=== PATIENT | female | born 1955 | race African-American/Black ===

== ENCOUNTER 2025-08-10 17:52 | Emergency (ER) | payer SELFPAY ==
--- NOTE | ~2025-08-10 | XR_ITS ---
EXAMINATION: XR wrist LT min 3V DATE: 08/10/2025 19:11 INDICATION: Trauma due to fall. TECHNIQUE: 3 views of the left wrist were obtained. COMPARISON: None. FINDINGS: No acute fracture at the left wrist. Moderate degenerative arthritis of radiocarpal joint. Severe degenerative changes of first carpometacarpal joint. Suboptimal visualization of distal scaphoid due to the degenerative change. IMPRESSION: 1. No acute fracture. 2. Severe degenerative changes of first carpometacarpal joint. Moderate degenerative changes of radiocarpal joint. 3. If symptoms are localized and persistent repeat x-ray is suggested after a few days. Suboptimal visualization of scaphoid due to the degenerative changes of the radiocarpal joint. Reviewed, dictated and finalized at location T. CAL RECORDS ADMINISTRATOR IMPRESSION: 1. No acute fracture. 2. Severe degenerative changes of first carpometacarpal joint. Moderate degener ative changes of radiocarpal joint. 3. If symptoms are localized and persistent repeat x-ray is suggested after a f ew days. Suboptimal visualization of scaphoid due to the degenerative changes o f the radiocarpal joint.
--- NOTE | ~2025-08-10 | CT_ITS ---
EXAMINATION: CT brain wo con DATE: 08/10/2025 19:21 INDICATION: Trauma due to fall. TECHNIQUE: Computed tomography (CT) of the head was performed without intravenous contrast. The mA was adjusted according to patient size. Iterative reconstruction technique was employed. The dose-length product was 605.33 mGy-cm. COMPARISON: None FINDINGS: No acute intracranial bleed or extra-axial collections. No evidence of ventriculomegaly or midline shift. No acute cranial fracture. IMPRESSION: 1. No acute findings on CT head without contrast. Reviewed, dictated and finalized at location T. ING THERAPIST
--- NOTE | ~2025-08-10 | CT_ITS ---
EXAMINATION:CT C-spine and facial bones without contrast: DATE: 08/10/2025 INDICATION: TECHNIQUE: Computed tomography (CT) of the C-spine and facial bones was performed without intravenous contrast. The dose-length product (DLP) was 795 mGy-cm. COMPARISON: None. FINDINGS: The orbital floors are intact. No acute fractures of the nasal bones and the zygomatic arches. No acute fractures of the mandible. No acute fractures of the cervical vertebrae. Severe degenerative disc changes at C4-5, C5-6 levels. No compromise of the spinal canal due to trauma. Compromise of neural foramen due to osteophyte complex and degenerative changes at C4-5 and C5-6 levels. IMPRESSION: 1. No acute facial fractures. 2. No acute fractures of the C-spine. Significant degenerative disc changes at C4-5 and C5-6 levels as mentioned above. Reviewed, dictated and finalized at location T. ER PRESS OPERATOR
[2025-08-10 18:52] VITALS: BP 121/60; PULSE 77; RESP 20; TEMP 36.4; O2SAT 100
[2025-08-10 20:21] VITALS: BP 157/70; PULSE 72; RESP 21; TEMP 36.6; O2SAT 100
--- OUTSIDE RECORDS SUMMARY | 2025-08-10 20:46 | XMS_ITS | Clinical Summary ---
Author Organization [facility] Address [address] [place] [address] Care Team Providers Care Analytical Data Scientist Name Role Phone Molina Terrazas MD Primary Care Provider Gini Martinez MD Unavailable [phone] Allergies Active Allergy Reactions Criticality Noted Date Comments Hydralazine Headache Low 07/06/2022 Medications acetaminophen (TYLENOL) 500 mg tablet Take 1 tablet (500 mg total) by mouth every 6 (six) hours as needed for pain Active melatonin 10 mg tablet Take 1 tablet (10 mg total) by mouth nightly as needed Active omega-3 fatty acids-fish oil 300-1,000 mg capsule Take 2 capsules (2 g total) by mouth daily Active triamcinolone (KENALOG) 0.1 % cream Apply to affected area (right foot) 1-2 times daily as needed. Avoid face and groin. 30 g 5 5 10/30/19 26 Active aspirin 81 mg chewable tablet Take 1 tablet (81 mg total) by mouth daily 5 01/18/20 26 Active furosemide (LASIX) 40 mg tablet Take 1 tablet (40 mg total) by mouth daily 90 tablet 3 5 01/24/20 26 Active spironolactone (ALDACTONE) 25 mg tablet Take 1 tablet (25 mg total) by mouth daily 90 tablet 3 5 01/24/20 26 Active potassium chloride ER (KLOR-CON) 20 mEq CR tablet Take 1 tablet (20 mEq total) by mouth daily 90 tablet 3 5 01/24/20 Active omeprazole (PriLOSEC) 20 mg capsule Take 1 capsule (20 mg total) by mouth daily 90 capsule 1 5 03/03/20 Active losartan (COZAAR) 25 mg tablet Take 1 tablet (25 mg total) by mouth daily 30 tablet 11 5 05/19/20 Active rosuvastatin (CRESTOR) 10 mg tablet Take 1 tablet (10 mg total) by mouth nightly 90 tablet 3 5 05/19/20 Active ramelteon (ROZEREM) 8 mg tabletIndication s:Sleep-Onset Insomnia Take 1 tablet (8 mg total) by mouth nightly 30 tablet 11 5 05/19/20 Active metoprolol XL (TOPROL-XL) 25 mg extended release tablet TAKE 1 TABLET(25 MG) BY MOUTH DAILY 90 tablet Active dapagliflozin propanediol (FARXIGA) 10 mg tablet Take 1 tablet (10 mg total) by mouth daily 30 [address] (CYMBALTA) 30 mg capsuleIndicatio ns:Neuropathic Pain,major depressive disorder Take 1 capsule (30 mg total) by mouth 2 (two) times a day 180 capsule 3 5 Active Active Problems Problem Noted Date Diagnosed Date NICM (nonischemic cardiomyopathy) 05/19/2025 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 Benign paroxysmal positional vertigo 05/19/2025 Esophageal dysphagia 03/18/2025 Overview (05/22/2025): 05/28: EGD shows inflammation - increased PPI to BID. Consider swallow study? Retching 03/18/2025 Unintentional weight loss 03/18/2025 Weight loss, unintentional 03/03/2025 Assessment & Plan (03/03/2025 12:31 PM CDT): Down 20 pounds in the last month. Consider additional imaging if omeprazole does not help with nausea/retching. Transition of care 01/23/2025 Overview (01/23/2025): Admission Date: 01/12/2025 Discharge Date: 01/16/2025 [address]mission Location: [facility] Problems/Diagnoses: Principal Problem: Sepsis without acute organ dysfunction, due to unspecified organism ([facility]) Active Problems: Class 2 severe obesity due to excess calories with serious comorbidity and body mass index (BMI) of 38.0 to 38.9 in adult ([facility]) Essential hypertension Primary osteoarthritis of left hip Moderate episode of recurrent major depressive disorder ([facility]) Coronary artery disease involving modoc coronary artery of modoc heart without angina pectoris Positive blood culture NSVT (nonsustained ventricular tachycardia) ([facility]) Hypokalemia Resolved Problems: No resolved hospital problems. Debility, age related debility, reduced mobility, and limitation of activities due to disability. Per PT or OT. DETAILS OF HOSPITAL STAY Presenting Problem/History of Present Illness: Patient has had a recent history of LE swelling, chest pains. Work up has shown EF 45%. Leg swelling improved on increased doses of furosemide. Compounded by LE venous stasis due to obesity and immobility due to very severe DJD hip. She also has had lower abdominal pain and noted hematuria. She was admitted for evaluation. Last night she was noted to have 10 beat run of NSVT. She also has GPC in 1/2 bottles from cultures taken in ER. Urine culture is pending. Hospital Course: Patient was given IV antibiotics with prompt improvement in her symptoms. Blood and urine cultures grew E. Coli. She was treated with 5 days of IV ceftriaxone and sent home on 2 days of oral cipro. She was seen in consultation by cardiology due to chest pain and NSVT. Dr. Carty recommended outpatient cardiac catheterization. Her diuretic regimen was decreased due to improvement in her legs. Hypokalemia was repleted with oral potassium supplements. Due to her severe DJD hip, PT worked with her. She will have C on DC. Active Issues Requiring Follow-up: FU with me in one week. Test Results Pending at Discharge: Pending Labs Order Current Status Magnesium In process Pro B-type natriuretic peptide In process Troponin T high-sensitivity series (baseline, 2hr, 4hr, 6hr) In process Blood culture Blood Preliminary result Blood culture Blood Preliminary result Operative Procedures Performed: Other Procedures: As above Pertinent Test Results: As above Discharge Details Physical Exam at Discharge: Discharge Condition: poor Pulse: 77 Resp: 18 BP: 143/80 Temp: 36.8 C (98.3 F) Weight: 101.7 kg (224 lb 3.3 oz) Pertinent Exam Findings at Discharge: minimal edema LE's Discharge Disposition: Patient will be discharged to:home with home health Code Status at Discharge: full Discharge Instructions: As above Other Instructions Walker Height: 160 cm (5' 3) Weight: 101.7 kg (224 lb 3.3 oz) Type: Adult (163-188 cm tall) Bariatric (>300#): No Wheeled walker: Yes Wheel type: Front wheeled Leg extenders: No Walker basket: No Patient qualifies: Patient s mobility limitation significantly impairs the ability to participate in one or more MRADLs in the home. The use of a walker will significantly improve the patient s ability to participate in MRADLs. Patient ability: Patient is willing and able to use the walker safely in the home because the limitation cannot be resolved using another piece of equipment. Patient s home provides adequate access for use and maneuvering. DME services provided by: [employer] Ambulatory referral to Home Health Service Line: Home Health Primary disciplines requested: Long-Term Physical Therapy Secondary disciplines requested: Occupational Therapy Home Health Services: Disease and Medication Management Therapy to Eval/Tx Therapy instructions: Evaluation/treatment Requested Start of Care Date: Next Week Physician to follow patient's care (the person listed here will be responsible for signing ongoing orders): PCP I attest that I or another qualified licensed provider saw the patient 90 days prior to or 30 days post admission and this face to face encounter meets the necessary Home Health requirements. The face to face encounter occurred on (date): 01/16/2025 The encounter with the patient was in whole, or in part, for the following medical condition, which is the primary reason for home health care. (List medical condition): urosepsis, severe DJD hip, CAD I certify that, based on my findings, the following services are medically necessary skilled home health services: Therapy to Eval/Tx Clinical findings that support the need for home care: Medical condition requiring skilled assessment/education Lack of knowledge regarding medications, requires education and assessment I certify that my clinical findings support patient's homebound status. Homebound criteria met because: Poor endurance Shortness of breath with minimal exertion Abnormal gait/unsteady balance resulting in fall risk Discharge Medications: Current Medications TAKE these medications acetaminophen 500 mg tablet Take 1 tablet (500 mg total) by mouth every 6 (six) hours as needed for pain Commonly known as: TYLENOL aspirin 81 mg chewable tablet Take 1 tablet (81 mg total) by mouth daily Start taking on: January 17, 2025 budesonide 32 mcg/actuation nasal spray Administer 1-2 sprays into each nostril daily Commonly known as: RHINOCORT AQUA ciprofloxacin 500 mg tablet Take 1 tablet (500 mg total) by mouth 2 (two) times a day for 4 doses For: Urinary Tract/Genitourinary Infection Commonly known as: CIPRO DULoxetine DR 30 mg capsule Take 1 capsule (30 mg total) by mouth 2 (two) times a day For: neuropathic pain, major depressive disorder Commonly known as: CYMBALTA furosemide 40 mg tablet Take 1 tablet (40 mg total) by mouth daily Commonly known as: LASIX melatonin 10 mg tablet Take 1 tablet (10 mg total) by mouth nightly as needed metoprolol XL 50 mg extended release tablet Take 1 tablet (50 mg total) by mouth daily Commonly known as: TOPROL-XL Start taking on: January 17, 2025 omega-3 fatty acids-fish oil 300-1,000 mg capsule Take 2 capsules (2 g total) by mouth daily potassium chloride ER 20 mEq CR tablet Take 1 tablet (20 mEq total) by mouth daily Commonly known as: KLOR-CON rosuvastatin 20 mg tablet Take 1 tablet (20 mg total) by mouth nightly Commonly known as: CRESTOR spironolactone 25 mg tablet Take 1 tablet (25 mg total) by mouth daily Commonly known as: ALDACTONE Start taking on: January 17, 2025 triamcinolone 0.1 % cream Apply to affected area (right foot) 1-2 times daily as needed. Avoid face and groin. Commonly known as: KENALOG valsartan 160 mg tablet Take 1 tablet (160 mg total) by mouth daily Commonly known as: ROSETTA Outpatient Follow-Up: Future Appointments Date Time Provider Department Center 01/23/2025 11:00 AM Elaine Burton NP [facility] 227 PC 02/02/2025 1:15 PM Johny Carty MD PhD [facility] 200 Specialty 06/18/2025 11:00 AM Elaine Burton NP [facility] 227 Contact Information for Follow-ups Molina Terrazas MD Specialty: Internal Medicine Relationship: PCP - General [address] [facility], [place] [address] [facility] [address] Next Steps: Follow up in 1 week(s) [facility] Specialty: Home [facility] and H[facility]ice [address] [facility] [address] Next Steps: Follow up Questions: Service Line: Home Health Primary disciplines requested: Long-Term Physical Therapy Secondary disciplines requested: Occupational Therapy Home Health Services: Disease and Medication Management Therapy to Eval/Tx Therapy instructions: Evaluation/treatment Requested Start of Care Date: Next Week Physician to follow patient's care (the person listed here will be responsible for signing ongoing orders): PCP I attest that I or another qualified licensed provider saw the patient 90 days prior to or 30 days post admission and this face to face encounter meets the necessary Home Health requirements. The face to face encounter occurred on (date): 01/16/2025 The encounter with the patient was in whole, or in part, for the following medical condition, which is the primary reason for home health care. (List medical condition): urosepsis, severe DJD hip, CAD I certify that, based on my findings, the following services are medically necessary skilled home health services: Therapy to Eval/Tx Clinical findings that support the need for home care: Medical condition requiring skilled assessment/education Lack of knowledge regarding medications, requires education and assessment I certify that my clinical findings support patient's homebound status. Homebound criteria met because: Poor endurance Shortness of breath with minimal exertion Abnormal gait/unsteady balance resulting in fall risk Referral Status: Do Not Schedule Patient qualifies for walker: Patient s mobility limitation significantly impairs the ability to participate in one or more MRADLs in the home. The use of a walker will significantly improve the patient s ability to participate in MRADLs. Patient qualifies for walker: Patient is willing and able to use the walker safely in the home because the limitation cannot be resolved using another piece of equipment. Patient s home provides adequate access for use and maneuvering. Hypokalemia 01/14/2025 Assessment & Plan (01/16/2025 8:23 AM CDT): Due to diuresis. Continue to replete orally as an outpatient. Short of breath on exertion 01/14/2025 Overview (05/22/2025): 03/27: PFT showed improvement after bronchodilator - trying Advair AM/HS 05/28: Binh: recommend starting inhalers Assessment & Plan (03/02/2025 2:15 PM CDT): Unclear cause Significant exertional dyspnea with non-cardiac etiology. Pulmonary origin suspected. PFT report not back yet. - Follow up with process coach Dr. Purcell in April. Positive blood culture 01/13/2025 Assessment & Plan (01/16/2025 8:24 AM CDT): Urinary source. 01-12 bottles with E. Coli 01-13 Repeat cultures NGTD Continue ceftriaxone. D5 Discharge on 2 days of cipro. NSVT (nonsustained ventricular tachycardia) 01/01 Overview (01/13/2025): 01-25 tele: 10 bt NSVT Assessment & Plan (01/14/2025 9:21 AM CDT): Appreciate cardiology consult. Continue with metoprolol. Sepsis without acute organ d ysfunction, due to unspecified organism 01/12/2025 Assessment & Plan (01/14/2025 9:23 AM CDT): Clinically resolved Fever, elevated WBC on admission. Due to urinary source. See above Advance care planning 12/11/2024 Overview (12/11/2024): 12-26 HCPOA: Daughter: 1. Reena Pleitez 2. Kathy Pleitez. Full code if there is a chance of recovery, otherwise DNR/DNI. Assessment & Plan (12/11/2024 11:42 AM CDT): Advance Care Planning Advance Care Planning Conversation Pertinent diagnoses: age The patient and/or family consented to a voluntary Advance Care Planning conversation. Individuals present for the conversation: patient Summary of the conversation: Full code if there is a chance of recovery, otherwise DNR/DNI. Outcome of the conversation and documents completed (select all that apply): CHANGE code status to FULL CODE I spent 16 minutes providing separately identifiable ACP services with the patient and/or surrogate decision maker in a voluntary, in-person conversation discussing the patient's wishes and goals as detailed in the above note. Molina Terrazas MD Vertigo 12/11/2024 Assessment & Plan (12/11/2024 11:35 AM CDT): Trial of Eppley maneuvers at home (look up on www.[employer].com). If not improved can send for vestibular exercises. Hoarseness of voice 12/11/2024 Overview (12/11/2024): 06-24 ENT: nl laryngoscopy. Possible reflux Assessment & Plan (12/11/2024 11:39 AM CDT): She is no longer on PPI. Feels more drainage lately. Trial of a nasal steroid. Coronary artery disease invo lving modoc coronary artery of modoc heart without angina pectoris 11/26/2024 Overview (12/11/2024): 11-25 CTA heart: LAD plaque, no stenosis. Assessment & Plan (06/18/2025 12:21 PM CDT): Follows with Dr. Carty Chronic combined systolic and diastolic heart failure Heart failure on medical therapy. Farxiga prescribed, pending cost assessment. Cardiac clearance needed for hip surgery. - [facility] to assess affordability of Farxiga. Continue other GDMT - Coordinate with Dr. Carty for cardiac clearance for hip surgery. Assessment & Plan (01/15/2025 8:39 AM CDT): LAD plaque seen on CTA done 11-25. Continue aspirin, rosuvastatin, metoprolol. Cardiology recs for CC noted, to schedule in about 14 days as an outpatient. Assessment & Plan (12/11/2024 11:05 AM CDT): Continue with BP control. Consider statin. Assessment & Plan (11/26/2024 11:17 AM CDT): 11/25: Mildly decreased EF on ECHO - more significant on Lexiscan. Fixed defect noted. Referred to cards Diastolic dysfunction 11/26/2024 Overview (11/26/2024): 11/25: ECHO EF 45%. Grade 1 DD with LVH - Cardiology to see her - they recommend starting metoprolol. Assessment & Plan (01/02/2025 1:33 PM CDT): Likely has a degree of CHF on top of venous stasis. Will increase furosemide to 60 mg bid. Reassess in 3 weeks and will repeat labs (BMP) at that time. Discussed keeping sodium less than 2 gm a day. Elevate feet as much as possible. Use compression hose. Assessment & Plan (12/11/2024 11:03 AM CDT): Continue on metoprolol, ARB. Spinal stenosis of lumbosacral region 08/01/2022 Overview (06/20/2024): 07/18/22: Known lumbar DD. Now with pain going down the front of both legs. Will update MRI to see if intervention would be needed For now take gabapentin 100 mg in the AM and Midday. Take 300 mg at night. 07/25: MRI shows severe spinal canal stenosis in lumbar region - referred to Dr. Quintero - at that time she did not want to do surgery. PM injections tried. 06/26: pain is affecting her daily - gabapentin did not help. Feeling defeated - Starting Lyrica and refer to PM again Assessment & Plan (11/06/2024 11:23 AM PAINTER TOUCH UP): 11/25: Trying Cymbalta - refer to pain management Assessment & Plan (06/20/2024 11:50 AM CDT): Medication management has not been successful. Can return to pain management or neurosurgery. Consider Lyrica Assessment & Plan (08/02/2022 11:28 AM PAINTER TOUCH UP): Referred to Dr. Quintero for further consideration. History of gout 07/03/2022 Overview (07/06/2022): 07/03/22: In today for left foot pain. Ongoing last week terrible Sunday. Still very sore. Went to [facility] but they did not have xray or lab 07/25: started colchicine - uric acid lab was high normal. Now off chlorthaladone Assessment & Plan (10/30/2024 3:43 PM PAINTER TOUCH UP): Having pain in both ankles and feet and worried about a gout flare. Explained to the patient it is likely the swelling in her legs and feet causing the pain. Toes are cool - will order PATTI. Assessment & Plan (07/06/2022 1:36 PM CDT): Continue the colchicine for the next week. Assessment & Plan (07/03/2022 3:46 PM CDT): May be gout Try colchicine twice per day Stop chlorthalidone Start hydralazine Return in 1 week Venous insufficiency 07/03/2022 Overview (08/02/2022): 07/25: ECHO: nl lv fxn Assessment & Plan (01/02/2025 1:35 PM CDT): See above Assessment & Plan (12/11/2024 11:50 AM CDT): Worsened due to immobility. Palpable pulses in feet. Continue with compression stockings. Assessment & Plan (11/06/2024 11:24 AM PAINTER TOUCH UP): Improving - will get updated ECHO next week. Continue with increased lasix. Assessment & Plan (10/30/2024 3:08 PM PAINTER TOUCH UP): Increase furosemide to 40 mg twice per day and return in 1 week Assessment & Plan (06/20/2024 12:40 PM CDT): Get back on BP valsartan and continue furosemide Elevate feet when sitting Compression must be used Avoid sodium in the diet Assessment & Plan (04/19/2023 12:14 PM CDT): Mostly venous insufficiency. Her lack of mobility is a major factor. Not willing to do compression stockings. Increased diuretic not likely to help much in this situation. Must check renal function first. Assessment & Plan (08/02/2022 11:49 AM PAINTER TOUCH UP): Check BMP on lasix To use compression stockings daily. Range of motion leg exercises. Assessment & Plan (07/18/2022 11:14 AM PAINTER TOUCH UP): ECHO today Worse - adding on furosemide daily Advise to use compression socks and elevate feet with sitting Avoid sodium in the diet Assessment & Plan (07/06/2022 1:36 PM CDT): ECHO upcoming - for now stay off clorthalidone Assessment & Plan (07/03/2022 3:32 PM CDT): Lab today Headache 06/15/2021 Assessment & Plan (06/15/2021 9:44 AM CDT): Likely related to hypertension. Improved this AM. Follow. Moderate episode of recurrent major depressive d isorder 06/01/2021 Overview (06/01/2021): 9-21 to look into counseling Assessment & Plan (01/14/2025 9:20 AM CDT): To do counseling as an outpatient. Assessment & Plan (12/11/2024 11:05 AM CDT): Continue duloxetine. Assessment & Plan (10/30/2024 3:40 PM PAINTER TOUCH UP): Tried lyrica in the past. Consider cymbalta in the future. Assessment & Plan (06/20/2024 12:38 PM CDT): Starting Lyrica as she is feeling defeated due to pain. Assessment & Plan (06/23/2021 11:36 AM CDT): Look into counseling Assessment & Plan (06/01/2021 3:52 PM CDT): She would like to start with counseling. To call her insurance and find a list of covered providers. Multiple joint pain 01/13/2019 Assessment & Plan (12/11/2024 11:06 AM CDT): Diffuse arthritis. Continue with tylenol and Voltaren gel. Primary osteoarthritis of left hip 01/13/2019 Overview (06/20/2024): 07/18/22: Today reporting bilateral hip pain - pain also goes down the front of both thighs. Known hip arthritis. Severe arthritis in the left hip 06/26: Continues to bother her daily - will try PM in effort to avoid surgery Assessment & Plan (01/16/2025 8:25 AM CDT): Resulting in significant immobility. PT to w/ HH Assessment & Plan (01/02/2025 1:34 PM CDT): Refer to another orthopedist for a second opinion. Assessment & Plan (11/06/2024 11:23 AM PAINTER TOUCH UP): Severe arthritis - continue Tylenol and adding cymbalta Assessment & Plan (06/20/2024 11:50 AM CDT): Discuss with PM Assessment & Plan (04/19/2023 12:17 PM CDT): She has very severe disease. I advised her to go to ortho as XENIA is really the only chance she has for improved quality of life. Chronic narcotics will not help her condition and are not appropriate. Continue with gabapentin. Add back tylenol at 1000 mg three times a day. Trial of diclofenac gel. Assessment & Plan (08/02/2022 11:29 AM PAINTER TOUCH UP): Severe disease. May need XENIA at some point as well. Assessment & Plan (07/18/2022 11:27 AM PAINTER TOUCH UP): Today reporting bilateral hip pain - pain also goes down the front of both thighs. Known hip arthritis. Unclear if the pain is related to her hips or lumbar disc disease -imaging ordered Assessment & Plan (08/19/2021 12:53 PM PAINTER TOUCH UP): Very severe. Pending the work up listed below, consider repeat ortho referral. Assessment & Plan (06/23/2021 11:35 AM CDT): Refer to Dr. Pearce Assessment & Plan (06/15/2021 9:43 AM CDT): Very severe with limited mobility. Ortho is wanting weight loss prior to considering surgery. Her cardiovascular status will need to be optimized first as well. Assessment & Plan (06/01/2021 3:54 PM CDT): The hip looks to be severely arthritic. Will refer to Dr. Michael Guerra for further evaluation. Other chronic pain 01/13/2019 Assessment & Plan (11/06/2024 11:23 AM PAINTER TOUCH UP): Starting cymbalta and refer to PM Assessment & Plan (10/30/2024 3:39 PM PAINTER TOUCH UP): Ongoing issues with arthritis in both upper and lower extremities. Using tylenol. Asking for something else. Will discuss with Dr. Terrazas when he returns Medicare annual wellness visit, subsequent 10/15 Assessment & Plan (12/11/2024 11:02 AM CDT): Please see below for a list of your medical conditions and recommendations. Assessment & Plan (06/23/2021 11:01 AM CDT): Mammogram: due DEXA: due Colon: 12/23 The patient should continue to focus on diet and exercise as a way to maintain and improve health. Will review labs performed today and contact the patient with the results. At this point continue the current medication regimen. Assessment & Plan (10/15/2018 9:59 AM PAINTER TOUCH UP): Reviewed medical history and medications as well as new concerns Dr. Terrazas met with this patient as well Will accept her as a new patient. Next visit due: in 2 weeks Needs multiple screenings Will need to get records from Dr. Ding Insomnia 10/15/2018 Overview (10/29/2018): Does not feel she sleeps at night BT: 9pm - hard to get into bed. RT: 3am Fatigued. Will fall asleep unintentionally in the day. No snoring or pauses in breathing. Melatonin tried and did not help Assessment & Plan (10/15/2018 10:13 AM PAINTER TOUCH UP): Not sleeping at night and falling asleep in the day Pain is an ongoing factor Class 2 severe obesity due t o excess calories with serious comorbidity and body mass index (BMI) of 38.0 to 38.9 in adult 10/15/2018 Assessment & Plan (01/13/2025 9:05 AM CDT): Risk factor for more severe disease. Outpatient efforts at weight loss through diet and exercise. Assessment & Plan (01/02/2025 1:34 PM CDT): Insurance denied ozempic. Continue efforts at calorie restriction. Assessment & Plan (12/11/2024 11:34 AM CDT): She needs to continue efforts at weight loss through regular exercise and calorie restriction, making sure to avoid high fat foods, simple carbohydrates (sugars) and any beverages containing sugar. To work at eating at least 4-5 servings of fruits and vegetables a day. The ideal BMI is 25.0. Discussed doing SGLP1 inhibitors given heart disease and obesity. Discussed administration, possible side effects. Will send a script. She understands it may not be covered. Assessment & Plan (11/06/2024 11:23 AM PAINTER TOUCH UP): Down 6 pounds since the last visit Assessment & Plan (10/30/2024 3:38 PM PAINTER TOUCH UP): Up another 3 pounds. BMI Follow-up includes: nutrition counseling and exercise counseling. Assessment & Plan (06/20/2024 12:38 PM CDT): Weight down 8 pounds since the last visit Assessment & Plan (04/19/2023 12:14 PM CDT): Major risk factor for her medical conditions. Assessment & Plan (08/02/2022 11:29 AM PAINTER TOUCH UP): Risk factor for more severe disease. Assessment & Plan (07/18/2022 11:29 AM PAINTER TOUCH UP): Ongoing Assessment & Plan (07/04/2022 9:06 AM CDT): BMI Follow-up includes: nutrition counseling and exercise counseling. Assessment & Plan (06/23/2021 11:34 AM CDT): BMI Follow-up includes: nutrition counseling and exercise counseling. Assessment & Plan (06/15/2021 9:43 AM CDT): Outpatient efforts at diet and exercise. Assessment & Plan (06/01/2021 3:55 PM CDT): She needs to continue efforts at weight loss through regular exercise and calorie restriction, making sure to avoid high fat foods, simple carbohydrates (sugars) and any beverages containing sugar. To work at eating at least 4-5 servings of fruits and vegetables a day. The ideal BMI is 25.0. Assessment & Plan (10/15/2018 9:34 AM PAINTER TOUCH UP): The BMI is in the obese range thus increasing your risk for cardiovascular, endocrine, GI, and musculoskeletal problems. Strive to cut back on calories and increase exercise to achieve weight loss. Include at least 4-5 fruits and vegetables in the diet daily and exercise for about 30 min nearly every day. Limit fried and high fat foods and include lean sources of protein as well as low fat dairy or other calcium sources. Consider making short and exterminator goal to track your progress. Keep a diet/exercise record or on line resource to track calories in and out. Discuss your efforts with me at the next visit. Look up [employer] - this is a free calorie tracking madelyn. BMI Follow-up includes: nutrition counseling and exercise counseling. Essential hypertension 10/15/2018 Overview (06/20/2024): 05-24 resume lisinopril 20/d, start chlorthalidone - stop lisinopril for cough. Start valsartan 160/d 07/25: had to stop the chlorthalidone due to gout - started hydralazine but it caused a terrible headache. BP ok off chlorthalidone at this time. Will track at home and return in 2 weeks. 07/18/22: BP up and ankle swelling worse. Starting furosemide and return in 2 weeks 06/26: not regularly taking her valsartan. Does take furosemide Assessment & Plan (06/18/2025 12:21 PM CDT): BP in range Essential hypertension Blood pressure well-controlled. No home monitoring currently. - Continue current antihypertensive regimen. (Spironolactone, losartan, metoprolol and furosemide - Encourage home blood pressure monitoring. Assessment & Plan (01/14/2025 9:20 AM CDT): Continue on metoprolol, losartan Assessment & Plan (12/11/2024 11:03 AM CDT): The blood pressure is adequately controlled. Ideally, I want it below 130/80. Will continue with the same medications as prescribed (valsartan, metoprolol). Salt intake needs to be restricted to keep the sodium level at less than 2000 mg a day. Regular exercise is also important and should be at least four days a week. Assessment & Plan (11/06/2024 11:24 AM PAINTER TOUCH UP): BP improving - continue diovan and increased dose of the lasix Assessment & Plan (10/30/2024 3:42 PM PAINTER TOUCH UP): At the last visit she reported not regularly taking her valsartan. Does take her furosemide. We have a hard time getting her to come in for regular visits for healthcare. BP is high today and I suspect CHF flare. We are increasing the furosemide and having her come in next week for f/u. Assessment & Plan (06/20/2024 12:40 PM CDT): Get back on the Diovan and continue the furosemide Return for AWV in 1 month Assessment & Plan (04/19/2023 12:13 PM CDT): She needs to get back to taking valsartan daily. Check BMP to assess renal function. Return in six weeks. Assessment & Plan (07/18/2022 11:13 AM PAINTER TOUCH UP): BP and swelling are worse without the chlorthalidone. Adding on Furosemide at 20 mg daily ECHO today Return in 2 weeks Assessment & Plan (07/06/2022 1:37 PM CDT): Continue valsartan and stay off the chlorthalidone Avoid excess sodium Return on 07/18/22 for next BP check If the BP at home stays at or under 140/90 - no changes are needed Assessment & Plan (07/03/2022 3:46 PM CDT): BP elevated today Start hydralazine and stop the chlorthalidone Assessment & Plan (06/23/2021 11:35 AM CDT): BP in range today Continue current medication Return in 1 mo Assessment & Plan (06/15/2021 9:42 AM CDT): Cut back chlorthalidone to 12.5/d given renal dysfunction. May need to increase ACEi or start CCB in addition. Assessment & Plan (06/01/2021 3:55 PM CDT): I am quite concerned about her very elevated blood pressure. Check ECG today. To resume lisinopril and will add chlorthalidone. Check renal function. Knows to avoid NSAIDs. Follow up in two weeks. Salt restriction encouraged. Assessment & Plan (10/29/2018 1:34 PM PAINTER TOUCH UP): BP is much improved from the last visit Will get labs today Return in 6 mos Assessment & Plan (10/15/2018 10:14 AM PAINTER TOUCH UP): BP is too high today Will start medication : lisinopril 10mg daily and return in 2 weeks Osteoarthritis of knee 03/09/2014 Overview (07/18/2022): Osteoarthritis of knee Walks with cane 07/25: known severe arthritis bilateral knees - used to get steroid injections. Questions if she can get these again. Assessment & Plan (07/18/2022 11:28 AM PAINTER TOUCH UP): I want to see if this radicular pain improves with gabapentin. Can consider steroid injection into the knees in the future. May need a referral to pain management due to multiple pain complaints Assessment & Plan (06/23/2021 11:33 AM CDT): Uses cane - tylenol is safer for chronic pain Assessment & Plan (10/15/2018 10:13 AM PAINTER TOUCH UP): Ok to use tylenol up to 1000mg three times per day Resolved Problems Problem Noted Date Diagnosed Date Resolved Date Decreased pulses in feet 11/06/202406/2025 Overview (11/17/2024): 11/25: PATTI: NL Assessment & Plan (11/06/2024 11:25 AM PAINTER TOUCH UP): PATTI upcoming next week Pain of right scapula 08/19/20212021 Assessment & Plan (08/19/2021 12:55 PM PAINTER TOUCH UP): The point tenderness in her scapula and left ribs is concerning for a space occupying lesion. Will send for an xray and consider doing a bone scan. Check labs for evidence of systemic disease including MM. Laryngopharyngeal reflux 08/19/202106/2025 Overview (08/02/2022): - Arvind: PPI Assessment & Plan (08/02/2022 11:31 AM PAINTER TOUCH UP): Continue nexium Assessment & Plan (08/19/2021 12:55 PM PAINTER TOUCH UP): Refer to ENT. Rib pain on left side 08/19/20212021 Assessment & Plan (08/19/2021 12:56 PM PAINTER TOUCH UP): See above. Encounter for support and co ordination of transition of care 06/23/2021 07/18/2022 Overview (06/23/2021): Admission Date: 06/14/2021 Discharge Date: 06/15/2021 AVELINO: 06/21/21 Primary Discharge Diagnosis Exertional chest pain Secondary Discharge Diagnosis Principal Problem: Exertional chest pain Active Problems: Morbid obesity with BMI of 40.0-44.9, adult (HCC) Essential hypertension Primary osteoarthritis of left hip Headache Acute renal failure superimposed on stage 3 chronic kidney disease (HCC) History of Present Illness: Patient presented to my office on 06-01-21 after not having been seen for many years. She has a long history of HTN but had not been on medicine for several years. She was started on chlorthalidone and lisinopril. At that time she was not having exertional chest pain. She called complaining of dizziness on 06-10-21. At that time her SBP was in 150's. She was instructed to continue the medications and keep her follow up scheduled on 06-17-21. Since that time she had a few episodes of chest tightness with exertion and came to ER last night. She also had a BILLINGS which has resolved this AM. Troponin's negative. She was admitted for stress testing and further evaluation. Hospital Course Stress testing showed no ischemia. She was sent home on chlorthalidone 12.5 mg a day. She will follow up with me in one week. Discharge Medications: Your medication list CHANGE how you take these medications Instructions Last Dose Given Next Dose Due chlorthalidone 25 mg tablet What changed: how much to take Take 0.5 tablets (12.5 mg total) by mouth daily CONTINUE taking these medications Instructions Last Dose Given Next Dose Due acetaminophen 500 mg tablet Commonly known as: TYLENOL acidophilus-pectin, citrus 100 million cell-10 mg capsule lisinopriL 20 mg tablet Commonly known as: PRINIVIL,ZESTRIL Take 1 tablet (20 mg total) by mouth daily melatonin 10 mg tablet multivitamin capsule omega-3 fatty acids-fish oil 300-1,000 mg capsule Operative Procedures Performed Consults: none Procedures: none Physical Exam at Discharge Discharge Condition: fair Pulse: 82 Resp: 18 BP: 143/60 Temp: 36.6 C (97.9 F) Weight: 106.2 kg (234 lb 3.2 oz) Discharge Disposition Discharge to home or self care Code Status at Discharge: full Active Issues Requiring Follow-up: none Total Discharge Time: 25 min Outpatient Follow-Up No future appointments. Patient to call ([phone]) to schedule follow up with Dr. Terrazas in 1 week. Assessment & Plan (06/23/2021 10:58 AM CDT): Principal Problem: Exertional chest pain: stress test did not show ischemia - BP medication adjusted. Active Problems: Morbid obesity with BMI of 40.0-44.9, adult (HCC): BMI Follow-up includes: nutrition counseling and exercise counseling Essential hypertension: chlorthalidone dose adjusted in hospital. BP in range today. Will get labs to check electrolytes on this medication. Primary osteoarthritis of left hip: Tylenol is safer for chronic pain. Headache: resolved at discharge Acute renal failure superimposed on stage 3 chronic kidney disease: checking BMP today Needs annual exam Exertional chest pain 06/15/20212021 Assessment & Plan (06/15/2021 9:42 AM CDT): She has ruled out for OH. In process of getting NM stress test now. If negative, will focus on finding the right combination of medicine to control her blood pressure. I am concerned that she has a very low tolerance for any side effect and simply stops taking them. I told her that due to past noncompliance and persistent hypertension, she is at very high risk for complications. Acute renal failure superimp osed on stage 3 chronic kidney disease 06/15/2021 07/18/2022 Overview (06/23/2021): LISBETH seen in hospital and chlorthalidone decreased. Assessment & Plan (06/23/2021 11:36 AM CDT): Chlorthalidone decreased in hospital - recheck BMP today Assessment & Plan (06/15/2021 9:45 AM CDT): Cut back on chlorthalidone as above. Chronic bilateral low back p ain with bilateral sciatica 01/13/2019 08/02/2022 Overview (08/02/2022): Assessment & Plan (07/18/2022 11:12 AM PAINTER TOUCH UP): Now with pain going down the front of both legs Will update MRI to see if intervention would be needed For now take gabapentin 100 mg in the AM and Midday. Take 300 mg at night. Assessment & Plan (06/23/2021 11:35 AM CDT): Refer to Dr. Pearce Assessment & Plan (06/01/2021 3:55 PM CDT): Will first have her evaluated for her hip. Can consider pain management again if needed. Left leg pain 10/15/2018 07/18/2022 Overview (10/28/2018): February 2017: ladder fell on her leg - hitting lateral left calf Had a doppler - no clot - does not remember an xray Long lasting bruise and lasting skin changes No PT or other treatment. Now hurts at night and with walking - starting in the hip and extending down the lateral leg to near the ankle. Will feel tingling. Tylenol used to help - takes 1000mg 2 times per day Aleve or Advil: occasional Due to severe arthritis in the hip referred her to Dr. Wolfe Assessment & Plan (10/29/2018 1:23 PM PAINTER TOUCH UP): Upcoming apt with Dr. Wolfe He is requesting films from [employer] Encounters Date Type Department Care Team Description 07/08/2025 12:00 PM PAINTER TOUCH UP Office Visit [facility] [address] [place] [address] Dominic Purcell MD Shortness of breath (Primary Dx); Dysphagia, unspecified type; Chronic combined systolic and diastolic congestive heart failure (HCC); Hypersomnolence; Essential hypertension 06/25/2025 Telephone [facility] - [facility] [address] [place] [address] Stan Ontiveros MD 06/22/2025 Telephone [facility] [address] [place] [address] Johny Carty MD PhD Med Management 06/18/2025 11:00 AM CDT Office Visit [facility] at [facility] [address] [place] [address] Elaine Burton NP Essential hypertension (Primary Dx); Coronary artery disease involving modoc coronary artery of modoc heart without angina pectoris; Chronic combined systolic and diastolic heart failure (HCC); Arthritis of right hip; Lumbar radiculitis 06/16/2025 12:03 PM CDT - 06/16/2025 11:59 PM CDT Hospital Encounter [facility] OP Cardiac Testing [address] [place] [address] Coronary artery disease involving modoc coronary artery of modoc heart without angina pectoris; NSVT (nonsustained ventricular tachycardia) (HCC); NICM (nonischemic cardiomyopathy) (HCC); Chronic combined systolic and diastolic heart failure (HCC) Discharge Disposition: Discharge to home or self care 06/16/2025 Results Follow-Up [facility] Card[facility] [address] [place] [address] Johny Carty MD PhD Transthoracic Echo (TTE) Complete W Doppler/CF 05/20/2025 Telephone [facility] Card[facility] [address] [place] [address] Johny Carty MD PhD 05/19/2025 11:45 AM CDT Office Visit [facility] Card[facility] [address] [place] [address] Johny Carty MD PhD Coronary artery disease involving modoc coronary artery of modoc heart without angina pectoris (Primary Dx); NSVT (nonsustained ventricular tachycardia) (HCC); NICM (nonischemic cardiomyopathy) (HCC); Chronic combined systolic and diastolic heart failure (HCC); Primary insomnia; Benign paroxysmal positional vertigo, unspecified laterality 05/18/2025 Results Follow-Up [facility] Medicine Gastroenterology [address] [place] [address] [place] [id number] Surgical pathology 05/18/2025 Telephone [facility] Medicine Gastroenterology [address] Medicine [address]th [place] [address] [place] [address] Quin Rodríguez LPN Test Results from Last 3 Months Immunizations Immunization Administration Dates Next Due Influenza, Unspecified 06/03/2025(Deferred: Meagan ent Refused) Pneumococcal Polysaccharide PPV23 01/02/2011 Tdap 06/17/2012 Surgical History Surgery Date Site/Laterality Comments KNEE ARTHROCENTESIS Arthrocentesis of the right knee joint CHOLECYSTECTOMY 09/03/1973 - 09/02/1974 CARDIAC CATHETERIZATION 02/03/2025 N/A Procedure: Right Left Heart Catheterization with Coronary Angiography with or without Left Ventriculography 92174; Surgeon: Heather Cohn MD; Location: [facility] C[facility]; Service: Cardiovascular; Laterality: N/A; Medical History Medical History Date Comments Hypertension Hypertension Sleep apnea Sleep Apnea Hx Other Medical 1972 Gallbladder Arthritis Depression Low back pain Hip pain Knee pain Decreased pulses in feet 11/06/202411/25: A BI: NL Laryngopharyngeal reflux 08/19/2021- Se queira: PPI Gout Coronary artery disease Vertigo Insomnia Dysphagia Hoarseness of voice Shortness of breath on exertion Family History Medical History Relation Name Comments Unknown Family History Father Unknown Family History Mother Cancer Other 1 Family history of Cancer; Diabetes Other 2 Family history of Diabetes mellitus; Hypertension Other 3 Family history of Hypertension; Relation Name Status Comments Father Mother Other 1 Other 2 Other 3 Social History Tobacco Use Types Packs/Day Years Used Date Smoking Tobacco: Never Smokeless Tobacco: Never Tobacco Cessation:Counseling Given: Not Answered Alcohol Use Standard Drinks/Week Comments No 0 (1 standard drink = 0.6 oz pur e alcohol) [facility] Utilities Answer Date Recorded In the past 12 months has [employer], gas, oil, or water [employer] threatened to shut off services in your home? No 01/13/2025 Social Connection and Isolation Panel Answer Date Recorded In a typical week, how many times do you talk on the phone with family, friends, or neighbors? More than three times a week 01/13/2025 How often do you get togethe r with friends or relatives? More than three times a week 01/13/2025 How often do you attend chur ch or pentecostalism services? 1 to 4 times per year 01/13/2025 Do you belong to any clubs o r organizations such as confucianist groups, unions, fraternal or athletic groups, or school groups? No 01/13/2025 How often do you attend meet ings of the clubs or organizations you belong to? 1 to 4 times per year 01/13/2025 Are you , , di vorced, , never , or living with a partner? 01/13/2025 Overall Financial Resource Strain (CARDIA) Answe r Date Recorded How hard is it for you to pa y for the very basics like food, housing, medical care, and heating? Not hard at all 01/13/2025 PHQ-2 Answer Date Recorded PHQ-2 Total Score (If total score is 3 or more points, staff should administer the PHQ-9) 0 06/18/2025 Hunger Vital Sign Answer Date Recorded Within the past 12 months, y ou worried that your food would run out before you got the money to buy more. Never true 01/14/20 25 Within the past 12 months, t he food you bought just didn't last and you didn't have money to get more. Never true 01/13/2025 PRAPARE - Transportation Answer Date Re corded In the past 12 months, has l ack of transportation kept you from medical appointments or from getting medications? No 01/01 In the past 12 months, has l ack of transportation kept you from meetings, work, or from getting things needed for daily living? No 01/13/2025 Housing Stability Vital Sign Answer Roman e Recorded In the last 12 months, was t here a time when you were not able to pay the mortgage or rent on time? No 01/13/2025 In the past 12 months, how m any times have you moved where you were living? 0 01/13/2025 At any time in the past 12 m [place], were you homeless or living in a halfway (including now)? No 01/13/2025 AUDIT-C Answer Date Recorded Q1: How often do you have a drink containing alc ohol? Never 04/24/2025 Average Number of Drinks Not on file 025 Frequency of Binge Drinking Not on file 04/04 Personal Safety Answer Date Recorded Have you ever been in or are you currently in a harmful physical or emotional relationship or is someone making you feel afraid or unsafe? Denies 04/24/2025 Comments No Sex and Gender Information Value Date Recorded Sex Assigned at Not on file Legal Sex Female 7:43 PM PAINTER TOUCH UP Gender Identity Not on file Sexual Orientation Not on file Last Filed Vital Signs Vital Sign Reading Time Taken Comments Blood Pressure 110/75 07/08/2025 12:06 PM PAINTER TOUCH UP Pulse 63 07/08/2025 12:06 PM PAINTER TOUCH UP Temperature 36.6 C (97.9 F) 07/08/2025 12:06 PM PAINTER TOUCH UP Respiratory Rate 17 04/24/2025 11:25 AM CDT Oxygen Saturation 99% 07/08/2025 12:06 PM PAINTER TOUCH UP Inhaled Oxygen Concentration - - Weight 88.3 kg (194 lb 9.6 oz) 07/08/2025 12:06 PM PAINTER TOUCH UP Height 162.6 cm (5' 4) 07/08/2025 12:06 PM PAINTER TOUCH UP Body Mass Index 33.4 07/08/2025 12:06 PM PAINTER TOUCH UP Plan of Treatment Upcoming Encounters Date Type Department Care Team (Late st Contact Info) Description 09/10/2025 1:45 PM PAINTER TOUCH UP Hospital Encounter [facility] Operating Room [address] [place] [phone] Edi Wolfe MD [address] [address] 09/10/2025 1:45 PM PAINTER TOUCH UP - 09/10/2025 4:30 PM PAINTER TOUCH UP Surgery [facility] Operating Room [address] [place] [phone] Edi Wolfe MD [address] [address] Left Total Hip Arthroplasty Scheduled Procedures Name Priority Associated Diagnoses Date/Ti me ARTHROPLASTY TOTAL HIP Primary osteoarthritis of left hip 09/10/2025 1:45 PM PAINTER TOUCH UP Health Maintenance Due Date Last Done Comments Zoster Vaccine (1 of 2) 2004 Pneumococcal vaccine 65+ (2 of 2 - PCV) 01/03/2012 01/02/2011 DTaP/Tdap/Td Vaccine (2 - Td or Tdap) 06/17/2022 06/17/2012 Colon Cancer Screening-Colonoscopy 08/31/2025 Postponed from 1955 (Patient declined, but will receive in the future) Breast Cancer Screening-Mammogram 10/30/2025 11/19/2018, 06/17/2012 Postponed from 11/20/2019 (Patient declined, but will receive in the future) Well Visit 65+ 12/11/2025 12/11/2024, 06/04, 10/15/2018 Osteoporosis Screening-Bone Density Scan 01/23/2026 11/19/2018 Postponed from 11/19/2020 (Patient declined, but will receive in the future) Depression Screening 06/18/2026 06/18/2025, 12/11/2024, 06/23/2021, Additional history exists Fall Risk Assessment 06/18/2026 06/18/2025, 04/24/2025, 12/11/2024, Additional history exists Hepatitis B Screening Completed 12/11/2024 Hepatitis C Screening Completed 12/11/2024 Colon Cancer Screening-DNA Stool Discontinued 12/19/2024, 11/02/2018, 10/15/2018 Colon Cancer Screening-FIT Discontinued 12/19, 11/02/2018, 10/15/2018 Influenza Vaccine Discontinued Goals Goal Patient Goal Type Associated Problems Recent Progress Patient-Stated? Author CCM Chronic Pain Care Plan Chronic Care Management On track(07/18 11:30 AM PAINTER TOUCH UP) No Deepa Rizo, RN Note: Problem: Chronic Pain Goals: 1. Minimize further functional decline 2. Maximize quality of life 3. Control pain Strategies: - Activity/exercise program recommendation - Conservative stepwise pain medicine strategy with multi-disciplinary approach - Recommend healthy lifestyle strategies and compensatory methods as needed Autogenerated Goal Care Plan Autogenerated Problem No Mary Reinoso Procedures Procedure Name Priority Date/Time Associated Diagnosis Comments TRANSTHORACIC ECHO (TTE) COMPLETE W DOPPLER/CF W CONTRAST Routine 06/16/2025 12:56 PM CDT Coronary artery disease involving modoc coronary artery of modoc heart without angina pectoris NSVT (nonsustained ventricular tachycardia) (HCC) NICM (nonischemic cardiomyopathy) (HCC) Chronic combined systolic and diastolic heart failure (HCC) STOOL DNA COLOGUARD Routine 12/19/2024 12:50 AM CDT Colon cancer screening HEPATITIS C ANTIBODY Routine 12/11/2024 12:14 PM CDT Medicare annual wellness visit, subsequent DEXA AXIAL SKELETON BONE DENSITY 1 OR MORE SITES Schedule Routine, Read Routine (OP Routine) 11/19/2018 10:44 AM CDT Post-menopausal SCREENING MAMMOGRAM BILATERAL W CESAR Schedule Routine, Read Routine (OP Routine) 11/19/2018 10:36 AM CDT Breast cancer screening from Last 3 Months or Most Recently Relevant to Health Maintenance Results * TRANSTHORACIC ECHO (TTE) COMPLETE W DOPPLER/CF W CONTRAST (06/16/2025 12:56 PM CDT) Estimated EF 50-55 % CONS SCIMAGE Anatomical Region Laterality Modality Ultrasound 06/16/2025 12:0 8 PM CDT Narrative 06/16/2025 2:37 PM CDT [facility] [address] [place] [id number] ECHOCARDIOGRAM Patient Name: DIANA PLEITEZ : 1955 (69y 9m) Sex: F Study Date: 06/16/2025 12:08:44 PM Ht(Inch): 64 Wt(Lb): 201.06 BSA: 2.03 Trimming Machine Set Up Operator: IRAM Location: OPT Order Provider: JOHNY CARTY BMI: 34.51 BP: 124/78 Ref Provider: JOHNY CARTY - PROCEDURES: Echocardiographic Report: Transthoracic Echocardiogram with 2D, M-Mode, Spectral and Color Flow Doppler examination and administration of intravenous contrast. INDICATIONS: I25.10 Atherosclerotic heart disease of [place] coronary artery without angina pectoris, I47.29 Other ventricular tachycardia, I42.8 Other cardiomyopathies, and I50.42 Chronic combined systolic (congestive) and diastolic (congestive) heart failure. MEASUREMENTS: 2D/MM Value Range Doppler Value Range IVSd 2D 0.96 cm [ 0.60 - 0.90 ] AV Peak Thiago 1.10 m/s [ 1.00 - 1.70 ] LVIDd 2D 5.44 cm [ 3.80 - 5.20 ] AV Peak PG 4.8 mmHg LVIDs 2D 4.47 cm [ 2.20 - 3.50 ] AV Mean PG 2.8 mmHg LVPWd 2D 0.81 cm [ 0.60 - 0.90 ] AV VTI 21.0 cm Estimated EF 50-55 % CHERY VTI 2.8 cm2 LA Dimen 2D 3.87 cm [ 2.70 - 3.80 ] LVOT Peak Thiago 0.97 m/s [ 0.70 - 1.10 ] AoR Diam 2D 2.71 cm [ 2.70 - 3.70 ] LVOT Diam 2.0 cm AoR Diam 2D Index 1.34 LVOT Peak PG 3.8 mmHg RA Volume 35.50 ml LVOT VTI 18.6 cm LA Volume Index 22.00 ml/m2 [ 16.00 - 34.00 ] MV Peak PG 7.3 mmHg TAPSE 2.53 cm [ 1.71 - 5.00 ] MV Mean PG 2.2 mmHg MV E Peak Thiago 0.9 m/s [ 0.6 - 1.3 ] MV A Peak Thiago 1.4 m/s [ 1.0 - 1.2 ] MV PHT 69.0 ms [ 20.0 - 100.0 ] MV Decel Time 89.0 ms [ 104.0 - 258.0 ] MVA PHT 3.2 ms MV E/A Ratio 0.6 TR Peak Thiago 2.8 m/s [ 1.0 - 2.8 ] TR Peak PG 31 mmHg RVSP 34.1 mmHg [ 10.0 - 36.0 ] RA Pressure 3.0 mmHg PV Peak Thiago 0.9 m/s [ 0.4 - 0.8 ] PV Peak PG 3.2 mmHg Lat E` Thiago 0.06 m/s [ 0.10 - 0.15 ] Septal E` 0.04 m/s [ 0.08 - 0.15 ] E/E` 15.00 RV S` 0.12 m/s 2D/MM Value Range Doppler Value Range - FINDINGS: BP: Blood pressure: 124/78 mmHg. Left Ventricle: Low normal global left ventricular systolic function. Ejection Fraction is estimated at 50-55 %. There is at least grade I diastolic dysfunction (impaired myocardial relaxation). Mild enlargement of left ventricle. There is paradoxic septal motion. Mild concentric left ventricular hypertrophy. Right Ventricle: Normal right ventricular systolic function. Normal right ventricular size. Left Atrium: The left atrium is normal in size. Right Atrium: The right atrium is normal in size. Atrial Septum: Normal appearing atrial septum. Cannot exclude PFO by atrial septal color Doppler interrogation. Mitral Valve: Mitral stenosis is absent. Mild mitral valve regurgitation. Both leaflets appear mildly thickened. Mild mitral annular calcification. Aortic Valve: Aortic valve appears tricuspid in configuration. Aortic cusps appear mildly calcified. There is no aortic stenosis. Trace aortic valve regurgitation. Tricuspid Valve: Normal appearance of the tricuspid leaflets. Moderate tricuspid regurgitation. Normal right ventricular systolic pressure. Pulmonic Valve: Grossly normal appearing pulmonic valve. Pulmonic valve not well visualized. There is no pulmonic stenosis. Mild pulmonic regurgitation. Pericardium: Normal appearing pericardial thickness. No significant pericardial effusion. Aortic Root and Aorta: Normal caliber aortic root. Grossly normal ascending aorta. Aortic Arch: The aortic arch is poorly visualized. IVC: Normal appearance of the inferior vena cava. CONCLUSIONS: 1. Low normal global left ventricular systolic function. Ejection Fraction is estimated at 50-55 %. There is at least grade I diastolic dysfunction (impaired myocardial relaxation). Mild enlargement of left ventricle. There is paradoxic septal motion. Mild concentric left ventricular hypertrophy. 2. Normal right ventricular systolic function. Normal right ventricular size. 3. Mitral stenosis is absent. Mild mitral valve regurgitation. Both leaflets appear mildly thickened. Mild mitral annular calcification. 4. Aortic valve appears tricuspid in configuration. Aortic cusps appear mildly calcified. There is no aortic stenosis. Trace aortic valve regurgitation. 5. Normal appearance of the tricuspid leaflets. Moderate tricuspid regurgitation. Normal right ventricular systolic pressure. Electronically Signed By: Johny Carty MD PhD 06/16/2025 2:37:22 PM CDT Procedure Note Johny Carty MD PhD - 06/16/2025 [facility] [address] [place] [address] ECHOCARDIOGRAM Patient Name: DIANA PLEITEZ : 1955 (69y 9m) Sex: F Study Date: 06/16/2025 12:08:44 PM Ht(Inch): 64 Wt(Lb): 201.06 BSA: 2.03 Trimming Machine Set Up Operator: IRAM Location: OPT Order Provider: JOHNY CARTY BMI: 34.51 BP: 124/78 Ref Provider: JOHNY CARTY - PROCEDURES: Echocardiographic Report: Transthoracic Echocardiogram with 2D, M-Mode,Spectral and Color Flow Doppler examination and administration of intravenouscontrast. 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 MEASUREMENTS: 2D/MM Value Range DopplerValue Range IVSd 2D 0.96 cm [ 0.60 - 0.90 ] AV Peak Vel1.10 m/s [ 1.00 - 1.70 ] LVIDd 2D 5.44 cm [ 3.80 - 5.20 ] AV Peak PG4.8 mmHg LVIDs 2D 4.47 cm [ 2.20 - 3.50 ] AV Mean PG2.8 mmHg LVPWd 2D 0.81 cm [ 0.60 - 0.90 ] AV VTI21.0 cm Estimated EF 50-55 % CHERY VTI2.8 cm2 LA Dimen 2D 3.87 cm [ 2.70 - 3.80 ] LVOT Peak Vel0.97 m/s [ 0.70 - 1.10 ] AoR Diam 2D 2.71 cm [ 2.70 - 3.70 ] LVOT Diam2.0 cm AoR Diam 2D Index 1.34 LVOT Peak PG3.8 mmHg RA Volume 35.50 ml LVOT VTI18.6 cm LA Volume Index 22.00 ml/m2 [ 16.00 - 34.00 ] MV Peak PG7.3 mmHg TAPSE 2.53 cm [ 1.71 - 5.00 ] MV Mean PG2.2 mmHg MV E Peak Thiago 0.9 m/s [ 0.6 - 1.3 ] MV A Peak Thiago 1.4 m/s [ 1.0 - 1.2 ] MV PHT 69.0 ms [ 20.0 - 100.0 ] MV Decel Time 89.0 ms [ 104.0 - 258.0 ] MVA PHT 3.2 ms MV E/A Ratio 0.6 TR Peak Thiago 2.8 m/s [ 1.0 - 2.8 ] TR Peak PG 31 mmHg RVSP 34.1 mmHg [ 10.0 - 36.0 ] RA Pressure 3.0 mmHg PV Peak Thiago 0.9 m/s [ 0.4 - 0.8 ] PV Peak PG 3.2 mmHg Lat E` Thiago 0.06 m/s [ 0.10 - 0.15 ] Septal E` 0.04 m/s [ 0.08 - 0.15 ] E/E` 15.00 RV S` 0.12 m/s 2D/MM Value Range DopplerValue Range - FINDINGS: BP: Blood pressure: 124/78 mmHg. Left Ventricle: Low normal global left ventricular systolic function.Ejection Fraction is estimated at 50-55 %. There is at least grade I diastolic dysfunction(impaired myocardial relaxation). Mild enlargement of left ventricle. There isparadoxic septal motion. Mild concentric left ventricular hypertrophy. Right Ventricle: Normal right ventricular systolic function. Normal rightventricular size. Left Atrium: The left atrium is normal in size. Right Atrium: The right atrium is normal in size. Atrial Septum: Normal appearing atrial septum. Cannot exclude PFO byatrial septal color Doppler interrogation. Mitral Valve: Mitral stenosis is absent. Mild mitral valve regurgitation.Both leaflets appear mildly thickened. Mild mitral annular calcification. Aortic Valve: Aortic valve appears tricuspid in configuration. Aorticcusps appear mildly calcified. There is no aortic stenosis. Trace aortic valveregurgitation. Tricuspid Valve: Normal appearance of the tricuspid leaflets. Moderatetricuspid regurgitation. Normal right ventricular systolic pressure. Pulmonic Valve: Grossly normal appearing pulmonic valve. Pulmonic valvenot well visualized. There is no pulmonic stenosis. Mild pulmonic regurgitation. Pericardium: Normal appearing pericardial thickness. No significantpericardial effusion. Aortic Root and Aorta: Normal caliber aortic root. Grossly normalascending aorta. Aortic Arch: The aortic arch is poorly visualized. IVC: Normal appearance of the inferior vena cava. CONCLUSIONS: 1. Low normal global left ventricular systolic function. Ejection Fractionis estimated at 50-55 %. There is at least grade I diastolic dysfunction (impairedmyocardial relaxation). Mild enlargement of left ventricle. There is paradoxic septalmotion. Mild concentric left ventricular hypertrophy. 2. Normal right ventricular systolic function. Normal right ventricularsize. 3. Mitral stenosis is absent. Mild mitral valve regurgitation. Bothleaflets appear mildly thickened. Mild mitral annular calcification. 4. Aortic valve appears tricuspid in configuration. Aortic cusps appearmildly calcified. There is no aortic stenosis. Trace aortic valve regurgitation. 5. Normal appearance of the tricuspid leaflets. Moderate tricuspidregurgitation. Normal right ventricular systolic pressure. Electronically Signed By: Johny Carty MD PhD 06/16/2025 2:37:22 PM CDT Johny Carty MD PhD CV ECHO PROCEDURES Fin al Result * Stool DNA - Cologuard (12/19/2024 12:50 AM CDT) Stool DNA - Cologuard Negative Negative [employer] ([facility] #:[id number]) Comment: The Cologuard Plus (TM) test was performed on this specimen. NEGATIVE TEST RESULT. A negative (normal) Cologuard Plus result means the patient has a [id number] chance of having colorectal cancer (CRC) or advanced precancer (polyps or lesions that could become cancer). Negative is the normal value (reference range) for this assay. Guidelines recommend screening again 3 years after a negative Cologuard Plus result. Continued screening increases the chance of finding CRC early or preventing it entirely. A clinical validation study showed the Cologuard Plus test is effective at ruling out CRC. Out of every 10,000 patients testing negative, approximately 2 will be falsely reassured that they do not have CRC, and out of every 100 patients testing negative, approximately 7 patients will be falsely reassured they do not have advanced precancer. TEST DESCRIPTION: The Cologuard Plus test is a multi-target stool DNA (mt-sDNA) test that analyzes DNA and hemoglobin biomarkers in stool. It uses a proprietary algorithm to qualitatively detect CRC and advanced precancer. It is FDA-approved and indicated for use in adults 45 years or older at average risk for CRC. A positive (abnormal) result should be followed by a colonoscopy. Patients with a negative (normal) result should screen again in 3 years. False positive and false negative results may occur. The USPSTF recommends the Cologuard test as a CRC screening option. Their modeling estimates that screening with the test every 3 years from ages 45-85 could prevent up to 73% of CRC and avoid up to 85% of CRC deaths. A 18,911-patient clinical trial found the Cologuard Plus test effectively detects CRC and precancer. The study found the test was 95% sensitive for CRC, 43% sensitive for advanced precancer, and had a 91% specificity (Cologuard Plus Clinician Brochure. [employer]. [place], [place].). Visit [email or web address].com/about/qyjfttfw-biaczrisagr-svuloyvajfm for more test information, references, warnings, and precautions. Stool 12/19/2024 12:5 0 AM CDT 01/06/2025 9:31 AM CDT Molina Terrazas MD LAB BODY FLUIDS AND STOOLS ORDERABLES Final Result [employer] (CLIA #:[id number]) [address] [place] [address] * Hepatitis C antibody Blood (12/11/2024 12:14 PM CDT) Hep C Ab Nonreactive Nonreactive Comment: Interpretive Data Nonreactive: Antibodies to HCV not detected. Does NOT exclude the possibility of recent exposure to HCV. Equivocal: Equivocal for HCV antibodies. Supplemental molecular testing will be automatically performed to determine infection status in accordance with current CDC screening recommendations. Reactive: Positive for HCV antibodies. This may represent current or past HCV infection. Supplemental molecular testing will be automatically performed to determine current infection status in accordance with current CDC screening recommendations. Interpretive data was last revised on 2019. Blood 12/11/2024 12:1 4 PM CDT 12/11/2024 4:52 PM CDT us Molina Terrazas MD LAB MICROBIOLOGY - GENERAL ORDERABLES Final Result [facility] [address] Department [place] [address] * Dexa Axial Skeleton Bone Density 1 or 2 Site (11/19/2018 10:44 AM CDT) Anatomical Region Laterality Modality Body N/A Digital Radiogra phy 11/19/2018 10:4 8 AM CDT Impressions 11/19/2018 10:49 AM CDT BMD near the young adult mean. Based on BMD alone, there is no increased risk of fragility fracture. If followup is to be done, for technical reasons, it should be performed on this same machine. Electronically signed by: Edi Lam M.D. Narrative 11/19/2018 10:49 AM CDT EXAM: Bone mineral density [facility]. HISTORY: Postmenopausal female. DXA BMD was done at [facility] on a [employer] CI. Precision testing at this site has resulted in a least significant change of: Lumbar spine 0.035 g/sq cm Hip 0.025 g/sq cm BMD L1-L4 is 1.317 g/sq cm corresponding to a T score of 2.5. There is degenerative endplate sclerosis at L2-L3 which increases total bone mineral density. BMD left femoral neck is 0.914 g/sq cm corresponding to a T score of 0.6. BMD total left hip is 0.934 g/sq cm corresponding to a T score of -0.1. COMPARISON: There are no old studies available from [facility] for comparison. Procedure Note Edi Lam MD - 11/19/2018 EXAM: Bone mineral density [facility]. HISTORY: Postmenopausal female. DXA BMD was done at [facility] Breast [facility] on a [employer] CI. Precision testing at this site has resulted in a least significant change of: Lumbar spine 0.035 g/sq cm Hip 0.025 g/sq cm BMD L1-L4 is 1.317 g/sq cm corresponding to a T score of 2.5. There is degenerative endplate sclerosis at L2-L3 which increases total bone mineral density. BMD left femoral neck is 0.914 g/sq cm corresponding to a T score of 0.6. BMD total left hip is 0.934 g/sq cm corresponding to a T score of -0.1. COMPARISON: There are no old studies available from [facility] for comparison. IMPRESSION: BMD near the young adult mean. Based on BMD alone, there is no increased risk of fragility fracture. If followup is to be done, for technical reasons, it should be performed on this same machine. Electronically signed by: Edi Lam M.D. Elaine Burton NP [facility] DXA PROCED[facility] Final Resul t * Screening Mammogram Bilateral W Cesar (11/19/2018 10:36 AM CDT) Anatomical Region Laterality Modality Breast Bilateral Mammography Narrative 11/20/2018 9:00 AM CDT Screening Mammogram Bilateral W Cesar: 11/19/18 Clinical: Breast cancer screening. Prior Study Comparisons: Comparison was made to the prior available relevant studies at the time of interpretatiion. Findings: Bilateral No significant masses, malignant type calcifications, skin thickening, nipple retraction, or significant lymphadenopathy is noted in either breast. The CAD review showed no significant findings. The breasts have scattered areas of fibroglandular density. The patient will be notified of results by letter. Impression: BI-RADS ATLAS category (overall): 1 Negative There is no mammographic evidence of malignancy. Routine Screening Mammogram in 1 Yr is recommended for bilateral Overall Assessment: 1 - Negative Elaine Burton NP [facility] MAMMO PROCEDURES Final Res ult from Last 3 Months or Most Recently Relevant to Health Maintenance Additional Health Concerns Active Problems Noted Date Diagnosed Date Autogenerated Problem 08/04/2025 Insurance MEDICARE [facility] MEDICARE [facility] Advance Directives For more information, please contact: [phone] * Full Code (Latest Code Status on File) Date Activated Date Inactivated Comments 04/24/2025 10:16 AM 04/24/2025 4:01 PM * Full Code Date Activated Date Inactivated Comments 02/03/2025 11:56 AM 02/03/2025 6:22 PM * Full Code Date Activated Date Inactivated Comments 01/12/2025 10:07 PM 01/16/2025 6:50 PM * Full Code Date Activated Date Inactivated Comments 06/15/2021 2:01 AM 06/15/2021 5:28 PM Care Teams Analytical Data Scientist Relationship Specialty Start Date End Date Molina Terrazas MD PCP - General Internal Medicine 10/15/18 Gini Martinez MD [address] [place] [address] Anesthesiologist Pain Management 07/18/24
--- OUTSIDE RECORDS SUMMARY | 2025-08-10 20:46 | XMS_ITS | Clinical Summary ---
Author Organization [facility] Address [facility] [place] [address] Care Team Providers Care Wood S[employer] Carpenter Name Role Phone Unavailable Primary Care Provider Unavailabl e Social History Tobacco Use Types Packs/Day Years Used Date Smoking Tobacco: Never Assessed Comments Unknown Sex and Gender Information Value Date Recorded Sex Assigned at Not on file Legal Sex Female 7:21 PM CDT Gender Identity Not on file Sexual Orientation Not on file Plan of Treatment Health Maintenance Due Date Last Done Comments Colorectal Cancer Screening Colonoscopy (10 Years) 1955 Hepatitis C 1972 DTaP, Tdap and Td Vaccines ( 1 - Tdap) 1973 Mammogram Screening 1994 Pneumococcal Vaccine: 50+ Ye ars (1 of 1 - PCV) 2004 Zoster Vaccines (1 of 2) 2004 Dexa Scan (General) 2019 COVID-19 Vaccine ( - 2024-2 6 season) 2025 Influenza Adult (#1) 2025 RSV Immunization or 60+ Years (1 - 1-dose 75+ series) 2029 Hepatitis A Vaccines Aged Out No long er eligible based on patient's age to complete this topic Meningococcal B Vaccine Aged Out No l onger eligible based on patient's age to complete this topic Meningococcal Vaccine Aged Out No kiah otis eligible based on patient's age to complete this topic RSV Immunizations Under 20 Months Aged Out No longer eligible based on patient's age to complete this topic
--- OUTSIDE RECORDS SUMMARY | 2025-08-10 20:46 | XMS_ITS | Clinical Summary ---
Author Organization [facility] Address [address] [place] [address] Care Team Providers Care Cooling System Operator Name Role Phone Omayra Leal MD, Anders Lambert Unavailable [phone] Richie Lamas MD Unavailable [phone] Jimmie Ding MD Primary Care Provider [phone] Source Comments [facility],non-owned Affiliates and Associated Physician Practices is amultiple site organization consisting of ambulatory clinics and hospital sitesin [place], [place], [place] and [place]. This disclosure is being madepursuant to the Care Everywhere program and may not contain all information available regarding this patient. Last updated 18.[facility] Allergies No known active allergies Medications * Be aware that medications may not be up to date on this document. Alwaysverify current medications with the patient. fish oil/omega-3 fatty acids (FISH OIL) 1000 MG capsule Take 1,000 mg by mouth 3 times daily with meals. Active Elastic Bandages & Supports (MEDICAL COMPRESSION STOCKINGS) MISCIndications: CHF (congestive heart failure), unspecified failure chronicity, unspecified type (HCC),Peripheral edema Use 1 Each once daily 2 Each 2 5 Active Melatonin 5 MG CHEWIndications: Sleep disturbance Take 1 Tab by mouth nightly as needed Active Ibuprofen-Diphen hydramine Cit (ADVIL PM PO)Indications:S leep disturbance Take 1 Tab by mouth nightly as needed Active furosemide (LASIX) 20 MG tabletIndication s:Edema Take 1 Tab by mouth once daily Reasons: Edema 60 Tab 5 7 Active ergocalciferol (DRISDOL) 99380 UNITS capsule Take one capsule one time a week for 12 weeks. 30 Cap 5 7 Active zolpidem (AMBIEN) 10 MG tabletIndication s:Insomnia Take 1 Tab by mouth nightly as needed for Insomnia Reasons: Trouble Sleeping 30 Tab 7 Active Active Problems Problem Noted Date Diagnosed Date Essential hypertension 02/11/2015 Osteoarthrosis involving lower leg 06/02/2014 Overview (11/27/2015): 2015 IMO Updt HLD (hyperlipidemia) 03/18/2014 Overview (03/18/2014): 10y ASCVD risk 6.1% Insomnia 02/03/2013 Osteoarthritis of right knee 04/26/2012 Overview (06/17/2012): S/p steroid injection by Dr. Anders Sotelo (04/2012) Immunizations Immunization Administration Dates Next Due PNEUMOCOCCAL PPSV23 01/02/2011 TDAP (7yrs+) 06/17/2012 Family History Medical History Relation Name Comments Arthritis - Rheumatoid Father Hypertension Father Diabetes Sister Relation Name Status Comments Father Sister Social History Tobacco Use Types Packs/Day Years Used Date Smoking Tobacco: Never Smokeless Tobacco: Never Tobacco Cessation:Counseling Given: Yes Alcohol Use Standard Drinks/Week Comments No 0 (1 standard drink = 0.6 oz pur e alcohol) Comments No Sex and Gender Information Value Date Recorded Sex Assigned at Not on file Legal Sex Female 6:19 AM PRUNER Gender Identity Not on file Sexual Orientation Not on file Last Filed Vital Signs Vital Sign Reading Time Taken Comments Blood Pressure 151/111 05/16/2017 10:19 AM CDT Pulse 87 05/16/2017 10:19 AM CDT Temperature 37.1 C (98.7 F) 05/16/2017 10:19 AM CDT Respiratory Rate 16 05/16/2017 10:19 AM CDT Oxygen Saturation 98% 05/16/2017 10:19 AM CDT Inhaled Oxygen Concentration - - Weight 117.9 kg (260 lb) 05/16/2017 10:19 AM CDT Height 165.1 cm (5' 5) 05/16/2017 10:19 AM CDT Body Mass Index 43.27 05/16/2017 10:19 AM CDT Plan of Treatment Health Maintenance Due Date Last Done Comments BONE DENSITY TESTING 1955 COLOGUARD (AGES 45-75) - COLON CA SCREENING 1954 COLON MONITORING 1954 COLONOSCOPY - COLON CA SCREENING 1954 CT COLONOGRAPHY - COLON CA SCREENING 1955 Colorectal Cancer Screening 1954 FIT - COLON CA SCREENING 1954 FLEX SIG - COLON CA SCREENING 1954 HEPATITIS C SCREENING 09/02/1972 Respiratory Syncytial Virus (RSV) Vaccine Pt: or over 60 yrs (1 - Risk 50-74 years 1-dose series) 2004 ZOSTER VACCINE (1 of 2) 2004 PNEUMOCOCCAL VACCINE 50+ (2 of 2 - PCV) 01/03/2012 01/02/2011 MAMMOGRAM 09/17/2015 09/17/2013, 06/03, 11/10/2010 SCREENING FOR DIABETES 03/29/2020 7, 10/03/2015, 03/12/2014, Additional history exists LIPID TESTING 03/29/2022 03/29/2017, 03/03, 06/17/2012, Additional history exists DTAP/TDAP/TD VACCINES (2 - Td or Tdap) 06/17/2022 06/17/2012 DEPRESSION SCREENING 09/03/2024 COVID-19 VACCINE ( season) 2025 INFLUENZA VACCINE (#1) 2025 HEPATITIS B VACCINE Aged Out No longe r eligible based on patient's age to complete this topic HIB VACCINE Aged Out No longer eligi ble based on patient's age to complete this topic HPV VACCINE Aged Out No longer eligi ble based on patient's age to complete this topic MENINGOCOCCAL (Group B) VACCINE SHARED DECISION-MAKING Aged Out No longer eligible based on patient's age to complete this topic MENINGOCOCCAL GROUPS A/C/Y/W VACCINE Aged Out No longer eligible based on patient's age to complete this topic Goals Goal Patient Goal Type Associated Problems Recent Progress Patient-Stated? Author Blood Pressure < 140/90 Blood Pressure 151/111(05/04 10:19 AM CDT) No Abydecember Note: Caring for Your High Blood Pressure Diet Eat a healthy diet: Eat healthy foods from all of the 5 food groups which are fruits, vegetables, breads, dairy products, meat and fish. Eating healthy foods may help you feel better and have more energy. To help control your blood pressure, you may need to limit the amount of salt and fat you eat. Read labels to see how much sodium (salt or sodium chloride) is in the food that you buy at the store. Avoid foods and drinks that are high in sodium (salt). These include smoked meats (such as ham and harmon), cheese, canned and frozen foods, and butter and margarine. Read all labels carefully. Do not add salt to your food. Learn to use fresh herbs, spices, or salt substitutes to add flavor to your food. Ask your provider for any dietary restrictions that are appropriate for you. Where can I go for more information? [place] [employer] National Center: http://www.americanheart.org 1. In the top header, click C onditions . 2. In the top header, click h igh blood pressure. 3. For a printable blood pressure tracker, scroll toward the bottom of the page to Related Tools, and click H BP Trackers. 5-695-HPK-USA-1 or ( ) National Heart, Lung and Blood [place]: http://www.nhlbi.nih.gov/health/infoctr/index.htm Yearly PCP visit Lifestyle No Romi Alvarez LPN Procedures Procedure Name Priority Date/Time Associated Diagnosis Comments COMPREHENSIVE METABOLIC PANEL Routine 03/29/2017 12:53 PM CDT Essential hypertension LIPID PROFILE Routine 03/29/2017 12:53 PM CDT Mixed hyperlipidemia MAMMO BILAT DIAGNOSTIC Routine 09/17/2013 11:41 AM PRUNER Abnormal mammogram from Last 3 Months or Most Recently Relevant to Health Maintenance Results * COMPREHENSIVE METABOLIC PANEL (03/29/2017 12:53 PM CDT) Glucose 88 74 - 106 mg/dL [facility] ACCOUNT BILL BUN 9 7 - 21 mg/dL [facility] ACCOUNT BILL Creatinine 0.83 0.50 - 1.30 mg/dL [facility] ACCOUNT BILL eGFR by MDRD >60 >60 mL/min/1.7 3m2 [facility] ACCOUNT BILL eGFR by MDRD >60 >60 mL/min/1.7 3m2 [facility] ACCOUNT BILL Sodium 143 136 - 145 mmol/L [facility] ACCOUNT BILL Potassium 4.0 3.5 - 5.1 mmol/L [facility] ACCOUNT BILL Chloride 106 98 - 107 mmol/L [facility] ACCOUNT BILL CO2 29 22 - 31 mmol/L [facility] ACCOUNT BILL Calcium 9.4 8.5 - 10.1 mg/dL [facility] ACCOUNT BILL Protein Total 7.4 6.4 - 8.2 gm/dL [facility] ACCOUNT BILL Albumin 3.7 3.4 - 5.0 gm/dL [facility] ACCOUNT BILL Bilirubin Total 0.8 0.2 - 1.0 mg/dL [facility] ACCOUNT BILL Alkaline Phosphatase 94 38 - 126 U/L [facility] ACCOUNT BILL AST 15 5 - 40 U/L [facility] ACCOUNT BILL ALT 17 13 - 61 U/L [facility] ACCOUNT BILL Comment:FASTING Blood BLOOD SPECIMEN / Unknown 03/29/2017 12:53 PM CDT 03/29/2017 Narrative Resulting Agency Comment [facility] [address] [facility] [phone] Jimmie Dign MD LAB - CHEMISTRY ORDERABLES Fin al Result [facility] ACCOUNT BILL [address] [place] [address] * (ABNORMAL) LIPID PROFILE (LIPID PANEL) (03/29/2017 12:53 PM CDT) Cholesterol 237(H) <200 mg/dL [facility] ACCOUNT BILL Triglycerides 110 <150 mg/dL [facility] ACCOUNT BILL HDL Cholesterol 73 >40 mg/dL [facility] ACCOUNT BILL VLDL Calculated 22 <=30 mg/dL [facility] ACCOUNT BILL LDL Calculated 142(H) <130 mg/dL [facility] ACCOUNT BILL Comment:FASTING Blood BLOOD SPECIMEN / Unknown 03/29/2017 12:53 PM CDT 03/29/2017 Narrative Resulting Agency Comment [facility] [address] [facility] [phone] Jimmie Ding MD LAB - CHEMISTRY ORDERABLES Fin al Result [facility] ACCOUNT BILL [address] [place] [address] * (ABNORMAL) JOSEPH DIAG DIRECT DIG IMAGE BILATERAL G0204 (09/17/2013 11:41 AM PRUNER) Anatomical Region Laterality Modality Bilateral Mammography 09/17/2013 11:5 3 AM PRUNER Narrative 09/17/2013 11:55 AM PRUNER EXAMINATION: Bilateral digital diagnostic mammogram on 09/17/13 INDICATION: Annual mammogram, short-term followup right breast calcifications FINDINGS: Computer assisted detection was utilized. Comparison is made with 2012. The cluster of calcifications in the right lateral breast has increased slightly in density. It still has a benign appearance but one more short-term followup is recommended. No change is noted the appearance of the left breast.. ASSESSMENT: BIRADS Category 3: Probably benign finding. Short interval follow up suggested.. RECOMMENDATION: Right breast diagnostic mammogram in 6 months. Procedure Note Shannan Hale MD - 09/17/2013 EXAMINATION: Bilateral digital diagnostic mammogram on 09/17/13 INDICATION: Annual mammogram, short-term followup right breast calcifications FINDINGS: Computer assisted detection was utilized. Comparison is made with 2012. The cluster of calcifications in the right lateral breast has increased slightly in density. It still has a benign appearance but one more short-term followup is recommended. No change is noted the appearance of the left breast.. ASSESSMENT: BIRADS Category 3: Probably benign finding. Short interval follow up suggested.. RECOMMENDATION: Right breast diagnostic mammogram in 6 months. us Shanita Mason MD MAMMO ORDERABLES Final Result from Last 3 Months or Most Recently Relevant to Health Maintenance Insurance [facility] Member Subscriber Plan / Payer (Ef fective 2012-Present) Name:Yoselyn Pleitez Member ID:Not on file Relation to Subscriber:Spouse Name:BROWN PLEITEZ Date of :1951 (Home) Address: [address] [place] [id number] Payer ID:[id number] (NAIC) Type:HMO Address: [place] [id number] Care Teams Cooling System Operator Relationship Specialty [place] [address] [place], [place] [id number] PCP - General Family Medicine 01/21/15 [place] [id number] [address] Orthopedic Surgery 03/11/14 [place] [address] [place] [address] Orthopedic Surgery 06/02/14
--- OUTSIDE RECORDS SUMMARY | 2025-08-10 20:46 | XMS_ITS | Clinical Summary ---
Author Organization [facility] Address [address] [place] [id number] Care Team Providers Care Bulk Intake Worker Name Role Phone Unavailable Primary Care Provider Unavailabl e Social History Tobacco Use Types Packs/Day Years Used Date Smoking Tobacco: Never Assessed Comments Unknown Sex and Gender Information Value Date Recorded Sex Assigned at Not on file Legal Sex Female 10:49 AM FOAM CHARGER Gender Identity Not on file Sexual Orientation Not on file Plan of Treatment Health Maintenance Due Date Last Done Comments Hepatitis C Virus (HCV) Screening 1955 TdaP Immunization 1954 Cologuard 1999 Colonoscopy 1999 Colorectal Cancer Screening 1999 Immunochemical Fecal Occult Blood 1999 Pneumococcal Immunization (5 0+ years) (1 of 1 - PCV) 2004 Zoster Immunization (1 of 2) 2004 Influenza Immunization (#1) 2025 SARS-COV-2 Immunization (1 - season) 2025 Respiratory Syncytial Virus (RSV) Immunization (Adult) (1 - 1-dose 75+ series) 2029 Hepatitis B Immunization Aged Out No longer eligible based on patient's age to complete this topic Human Papillomavirus (HPV) Immunization Aged Out No longer eligible b ased on patient's age to complete this topic Meningococcal Immunization (ACWY) Aged Out No longer eligible based on patient's age to complete this topic Rotavirus Immunization Aged Out No lo nger eligible based on patient's age to complete this topic
[2025-08-10] MEDS: MORPHINE SULFATE (*CRX) 4 MG/ML INJ 2 MG IV PUSH (20:52)
[2025-08-10] MEDS: METOCLOPRAMIDE HCL INJ 10 MG/2 ML VIAL IV PUSH (20:53)
--- NOTE | 2025-08-10 21:57 | ED_ITS ---
HPI - Head Injury General Chief complaint: Head Injury Stated complaint: GROUND LEVEL FALL Time Seen by Provider: 08/10/25 19:56 History of Present Illness HPI Narrative: Patient presents here after she tripped and fell, hurting her left wrist, and hitting her head. She is reporting some dizziness and pain with her head and her wrist. Related Data Allergies Allergy/AdvReac Type Severity Reaction Status Date / Time No Known Allergies Allergy Verified 08/10/25 20:33 Review of Systems Review of Systems: All systems reviewed & are unremarkable except as noted in HPI and below Exam Narrative: EXAMINATION OF ORGAN SYSTEMS/BODY AREAS: Constitutional: Vital signs per nursing GENERAL: Moans and cries when I touch her head HEAD: Injury to left side of face EYES: EOMI, conjunctiva normal ENT: Shallow superficial laceration to left forehead LUNGS: Nonlabored breathing. HEART: [Regular rate and rhythm] ABD: [Soft], [nontender to palpation] EXT: Normal range of motion but tenderness to the left wrist, no obvious deformity SKIN: Superficial laceration left forehead NEURO: [Alert. No gross focal sensory or strength deficits.] PSYCH: Normal affect Course Vital Signs Vital signs: Vital Signs Temperature 97.6 F 08/10/25 18:52 Pulse Rate 77 08/10/25 18:52 Respiratory Rate 20 08/10/25 18:52 Blood Pressure 121/60 08/10/25 18:52 Pulse Oximetry 100 08/10/25 18:52 Oxygen Delivery Room Air 08/10/25 18:52 Temperature 97.8 F 08/10/25 20:21 Pulse Rate 72 08/10/25 20:21 Respiratory Rate 21 H 08/10/25 20:21 Blood Pressure 157/70 H 08/10/25 20:21 Pulse Oximetry 100 08/10/25 20:21 Oxygen Delivery Room Air 08/10/25 20:21 Procedures Laceration Laceration 1: Date: 08/10/25 Time: 21:59 Site: face Side (If applicable): left Size (cm): 1 Description: stellate Depth: simple, single layer Pre-repair: wound explored, irrigated and deep structures intact ====== Skin Level ====== Skin layer closed with: dermabond ====== Subcutaneous Layer ====== ====== Muscle Layer ====== ====== Tendon Layer ====== MDM MDM Narrative Medical decision making narrative: Patient presents after she tripped and fell, hitting her head, also injuring her left wrist. She is reporting pain to her head and wrist. On exam she has a laceration to her left forehead, tenderness her left wrist. CT head and C-spine, facial negative for acute fractures or intracranial hemo rrhage. X-ray negative for acute fracture She is given Reglan and a small dose of morphine and feels much better on re- evaluation. Family very concerned about her going home. She has no neurologic deficits, she is very well-appearing at this time, her CT was negative, I did let them know fortunately I did not have a good indication to admit her with concussion. She has family at home who can look after her. Discussed concussion precautions follow-up to PCP and orthopedist for her wrist. Differential Diagnosis Differential Diagnosis: Intracranial hemorrhage, concussion, laceration, fracture Imaging Data Radiologist's impression: ITS Impressions Wrist X-Ray 08/10/25 19:15 IMPRESSION: 1. No acute fracture. 2. Severe degenerative changes of first carpometacarpal joint. Moderate degenera tive changes of radiocarpal joint. 3. If symptoms are localized and persistent repeat x-ray is suggested after a few days. Suboptimal visualization of scaphoid due to the degenerative changes of the radiocarpal joint. Head CT 08/10/25 19:22 IMPRESSION: 1. No acute findings on CT head without contrast. Head/Cervical Spine/Facial Bones CT 08/10/25 19:24 IMPRESSION: 1. No acute facial fractures. 2. No acute fractures of the C-spine. Significant degenerative disc changes at C4-5 and C5-6 levels as mentioned above. Discharge Plan Discharge Clinical Impression: Closed head injury, Concussion Patient Disposition: Home Condition: Stable Instructions: Concussion (ED), Hand Sprain (ED) Additional Instructions: Please follow up with your doctor and with orthopedist; try the medications as prescribed. You can always return for any further issues. Patient Language: Luxembourgish Prescriptions: New ibuprofen 400 mg tablet 400 mg PO TID PRN (Reason: pain) Qty: 14 0RF acetaminophen [Tylenol Extra Strength] 500 mg tablet 1,000 mg PO Q6H PRN (Reason: pain) Qty: 50 0RF ondansetron 4 mg tablet,disintegrating 4 mg PO Q8H PRN (Reason: nausea and vomiting) Qty: 14 0RF oxycodone 5 mg tablet 5 mg PO Q8H PRN (Reason: pain) Qty: 10 0RF meclizine 25 mg tablet 25 mg PO TID PRN (Reason: dizziness) Qty: 14 0RF Follow-up/Referrals: Nini,Molina Castillo MD [Primary Care Provider, Unknown]
[2025-08-10 22:16] VITALS: BP 118/50; PULSE 72; RESP 16; O2SAT 100
== END 2025-08-10 22:18 | disposition home or self-care (01) ==
PROVIDERS: Emergency Provider Emergency Medicine; PCP Internal Medicine
DX: S06.0XAA Concussion with loss of consciousness status unknown, initial encounter (principal); M25.532 Pain in left wrist; W01.0XXA Fall on same level from slipping, tripping and stumbling without subsequent striking against object, initial encounter
CPT/HCPCS: 12011; 70450; 70486; 72125; 73110; 96374; 96375; 99284; J2270; J2765